=== PATIENT | female | born 1935 | race Caucasian/White ===

== ENCOUNTER 2017-02-04 06:42 | Emergency (ER) | payer OTHER ==
[2017-02-04 06:50] VITALS: PULSE 80; RESP 18
--- NOTE | 2017-02-04 07:22 | EDPHY ---
H & P Time Seen by Provider: 02/04/17 07:21 HPI/ROS: Chief complaint. Nausea, vomiting, diarrhea HPI. Patient is an 81-year-old female presents with vomiting and diarrhea. She was constipated yesterday so she took a stool softener. This morning she had multiple sneezes and then needed to have diarrhea. She has had multiple episodes of loose stools that are brown. Also vomiting this morning. Denies abdominal pain, fever, chest pain, shortness of breath. She has been nauseated for several weeks since being on Keflex in early January for a yellow jacket sting. ROS Constitutional. no fever/chills, no weakness Eyes. no problems with vision ENT. no sore throat, no nasal drainage Cardiovascular. no chest pain Respiratory. no shortness of breath, no cough Abdominal. No abdominal pain but nausea vomiting and diarrhea . no problems urinating MS. no calf pain/swelling, no neck/back pain, no joint pain Skin. no rash Lymph. no swollen glands Neuro. no headache, no dizziness, no difficulty walking or with speech Past Medical/Surgical History: Diabetes, nephrectomy, kidney cancer, dyslipidemia, hypertension Social History: Single, nonsmoker, no alcohol Smoking Status: Never smoked Physical Exam: General Appearance: Alert well-developed female mild distress vital signs are stable Eyes: Pupils equal and round no pallor or injection. ENT, Mouth: Mucous membranes are moist. Respiratory: There are no retractions, lungs are clear to auscultation. Cardiovascular: Regular rate and rhythm. Gastrointestinal: Abdomen is soft and nontender, no masses, bowel sounds normal. Neurological: Awake and alert, sensory and motor exams grossly normal. Skin: Warm and dry, no rashes. Musculoskeletal: Neck is supple nontender. Extremities symmetrical, full range of motion. Psychiatric: Patient is oriented X 3, there is no agitation. Constitutional: Initial Vital Signs Temperature (C) 36.6 C 02/04/17 06:45 Heart Rate 80 02/04/17 06:45 Respiratory Rate 18 02/04/17 06:45 Blood Pressure 151/76 H 02/04/17 06:45 O2 Sat (%) 95 02/04/17 06:45 O2 Delivery Mode Room Air Allergies/Adverse Reactions: cephalexin Allergy (Verified 02/04/17 06:49) epinephrine [Epinephrine] Allergy (Verified 07/30/14 10:12) Horse/Equine Containing Products [Horse/Equine Product Derivatives] Allergy ( Verified 07/30/14 10:12) Hymenoptera Allergenic Extract [From Yellow Jacket Venom Protein] Allergy ( Verified 07/30/14 10:12) Penicillins Allergy (Verified 07/30/14 10:12) Bgfqkeq-Dnq-Xif Reductase Inhibitor Allergy (Verified 02/04/17 06:49) Sulfa (Sulfonamide Antibiotics) Allergy (Verified 07/30/14 10:12) Yellow Jacket Fawad Protein [From Yellow Jacket Venom Protein] Allergy (Verified 07/30/14 10:12) Home Medications: Medication Instructions Recorded Aspirin [Aspirin 81mg (*)] 81 mg PO Q48H 10/03/15 Meclizine HCl [Meclizine HCl 12.5 6.25 mg PO QID PRN 10/03/15 mg (*)] Pravastatin Sodium 20 mg PO HS 10/03/15 Ranitidine HCl [Zantac] 150 mg PO DAILY 10/03/15 Triamterene/Hydrochlorothiazid 1 each PO DAILY 10/03/15 [Triamterene-Hctz 37.5-25 mg Cp] Ondansetron Odt [Zofran Odt] 4 mg PO Q4PRN PRN #4 tab 02/04/17 Zetia 02/04/17 Medical Decision Making Procedures: IV normal saline. Zofran for nausea ED Course/Re-evaluation: Re-evaluation 8:55 a.m.--patient is feeling better. She has no nausea and there has been no vomiting. She has no abdominal pain. No sense of further diarrhea and has not been able to give us a stool sample Patient is drinking water without any abdominal pain, vomiting, diarrhea Patient and I discussed laboratory evaluation, treatment plan including criteria for return importance of follow-up and further evaluation. She expresses understanding and agreement Differential Diagnosis: Nausea and vomiting as well as diarrhea today. Patient had been constipated and took a stool softener and now has diarrhea today. The patient had been a on antibiotics about 3 weeks ago for a wasp sting and has been nauseated since. I have considered C difficile as well but patient is not able to give us a stool sample. - Data Points Laboratory Results: Laboratory Results 02/04/17 07:35 02/04/17 07:35 02/04/17 02/04/17 07:35 07:35 WBC 7.80 10^3/uL 10^3/uL (3.80-9.50) RBC 4.27 10^6/uL 10^6/uL (4.18-5.33) Hgb 13.3 g/dL g/dL (12.6-16.3) Hct 40.2 % % (38.0-47.0) MCV 94.1 fL fL (81.5-99.8) MCH 31.1 pg pg (27.9-34.1) MCHC 33.1 g/dL g/dL (32.4-36.7) RDW 13.1 % % (11.5-15.2) Plt Count 163 10^3/uL 10^3/uL (150-400) MPV 11.0 fL fL (8.7-11.7) Neut % (Auto) 85.7 % H % (39.3-74.2) Lymph % (Auto) 9.0 % L % (15.0-45.0) [place] % (Auto) 4.4 % L % (4.5-13.0) Eos % (Auto) 0.5 % L % (0.6-7.6) Baso % (Auto) 0.1 % L % (0.3-1.7) Nucleat RBC Rel Count 0.0 % % (0.0-0.2) Absolute Neuts (auto) 6.69 10^3/uL H 10^3/uL (1.70-6.50) Absolute Lymphs (auto) 0.70 10^3/uL L 10^3/uL (1.00-3.00) Absolute Monos (auto) 0.34 10^3/uL 10^3/uL (0.30-0.80) Absolute Eos (auto) 0.04 10^3/uL 10^3/uL (0.03-0.40) Absolute Basos (auto) 0.01 10^3/uL L 10^3/uL (0.02-0.10) Absolute Nucleated RBC 0.00 10^3/uL 10^3/uL (0-0.01) Immature Gran % 0.3 % % (0.0-1.1) Immature Gran # 0.02 10^3/uL 10^3/uL (0.00-0.10) Sodium 141 mEq/L mEq/L (134-144) Potassium 4.1 mEq/L mEq/L (3.5-5.2) Chloride 104 mEq/L mEq/L (97-110) Carbon Dioxide 24 mEq/l mEq/l (22-31) Anion Gap 13 mEq/L mEq/L (8-16) BUN 23 mg/dL mg/dL (7-23) Creatinine 1.0 mg/dL mg/dL (0.6-1.0) Estimated GFR 53 Glucose 147 mg/dL H mg/dL (70-100) Calcium 9.3 mg/dL mg/dL (8.5-10.4) Medications Given: Discontinued Medications Sodium Chloride (Ns) 1,000 mls @ 0 mls/hr IV EDNOW ONE; Wide Open PRN Reason: Protocol Stop: 02/04/17 07:33 Last Admin: 02/04/17 07:38 Dose: 1,000 mls Ondansetron HCl (Zofran) 4 mg IVP EDNOW ONE Stop: 02/04/17 07:33 Last Admin: 02/04/17 07:45 Dose: 4 mg Departure - Departure Disposition: Home, Routine, Self-Care Clinical Impression: Diarrhea Qualifiers: Diarrhea type: unspecified type Qualified Code(s): R19.7 - Diarrhea, unspecified Condition: Good Instructions: Acute Diarrhea (ED), Acute Nausea and Vomiting (ED), Loperamide ( By mouth) Additional Instructions: Frequent, small sips fluids well nauseated. Zofran if needed for nausea. May use Imodium (Loperamide) from the grocery store if necessary for diarrhea. Return for worsening abdominal pain, vomiting, diarrhea. Recheck in 1-2 days if not improved Referrals: Gaby Leonardo MD [Primary Care Provider] - 2-3 days, if not improved Prescriptions: Ondansetron Odt [Zofran Odt] 4 mg PO Q4PRN PRN #4 tab PRN Reason: Nausea/Vomiting, Use 1st
[2017-02-04] MEDS ORDERED: NS 1,000 ML IV ONE (07:32)
[2017-02-04] MEDS ORDERED: ONDANSETRON 4 MG/2 ML VIAL IVP ONE (07:32)
[2017-02-04 07:47] LABS: % IMMATURE GRANULYOCYTES 0.3 % (0.0-1.1); ABSOLUTE IMMATURE GRANULOCYTES 0.02 10^3/uL (0.00-0.10); ADD DIFF? NO; ADD MORPH? NO; ADD SCAN? NO; ATYPICAL LYMPHOCYTE FLAG 10 (0-99); FRAGMENT RBC FLAG 0 (0-99); HEMATOCRIT 40.2 % (38.0-47.0); HEMOGLOBIN 13.3 g/dL (12.6-16.3); LEFT SHIFT FLG 30 (0-99); LIPEMIA HEMOLYSIS FLAG 80 (0-99); MEAN CELL HEMOGLOBIN 31.1 pg (27.9-34.1); MEAN CELL HEMOGLOBIN CONCENTR. 33.1 g/dL (32.4-36.7); MEAN CELL VOLUME 94.1 fL (81.5-99.8); PLATELET CLUMPS FLAG 0 (0-99); PLATELET COUNT 163 10^3/uL (150-400); RED BLOOD CELL COUNT 4.27 10^6/uL (4.18-5.33); RED CELL DISTRIBUTION WIDTH 13.1 % (11.5-15.2)
[2017-02-04 08:12] LABS: ANION GAP 13 mEq/L (8-16); CALCIUM 9.3 mg/dL (8.5-10.4); CARBON DIOXIDE 24 mEq/l (22-31); CHLORIDE 104 mEq/L (97-110); GLOMERULAR FILTRATION RATE 53; GLUCOSE 147 mg/dL (70-100); POTASSIUM 4.1 mEq/L (3.5-5.2); SODIUM 141 mEq/L (134-144)
[2017-02-04 09:26] VITALS: BP 114/64; TEMP 98.4; O2SAT 94
== END 2017-02-04 09:24 | disposition home or self-care (01) ==
DX: R19.7 Diarrhea, unspecified (principal); I10 Essential (primary) hypertension; E11.9 Type 2 diabetes mellitus without complications; E86.9 Volume depletion, unspecified; Z85.528 Personal history of other malignant neoplasm of kidney; Z79.82 Long term (current) use of aspirin
CPT/HCPCS: 96360; 99284; J2405

== ENCOUNTER 2017-05-04 15:45 | Emergency (ER) | payer OTHER ==
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
[2017-05-04 16:00] VITALS: TEMP 98.1
--- NOTE | 2017-05-04 16:04 | CPEKG ---
Heart Rate: 68 RR Interval: 882 P-R Interval: 164 QRSD Interval: 94 QT Interval: 412 QTC Interval: 439 P Commerce: 74 QRS Commerce: 21 T Wave Commerce: 58 EKG Severity - NORMAL ECG - EKG Impression: SINUS RHYTHM Electronically Signed By: Isa Stanton 04-May-2017 21:13:14
[2017-05-04 18:04] VITALS: BP 176/112; PULSE 67; RESP 20; O2SAT 95
== END 2017-05-04 18:52 | disposition home or self-care (01) ==
LOC: EDUNIT#
DX: S16.1XXA Strain of muscle, fascia and tendon at neck level, initial encounter (principal); S20.219A Contusion of unspecified front wall of thorax, initial encounter; E11.9 Type 2 diabetes mellitus without complications; I10 Essential (primary) hypertension; Z79.82 Long term (current) use of aspirin; Z85.528 Personal history of other malignant neoplasm of kidney; V43.52XA Car driver injured in collision with other type car in traffic accident, initial encounter; Y92.410 Unspecified street and highway as the place of occurrence of the external cause; Y99.8 Other external cause status; Y93.89 Activity, other specified
CPT/HCPCS: L0172

== ENCOUNTER 2017-05-18 17:13 | Emergency (ER) | payer OTHER ==
[2017-05-18 17:28] VITALS: BP 183/86; PULSE 71; RESP 20; TEMP 98.6; O2SAT 94
--- NOTE | 2017-05-18 17:37 | EDPHY ---
H & P Stated Complaint: left leg wound starting a couple days ago, concerned d/t diabetes Time Seen by Provider: 05/18/17 17:28 HPI/ROS: CHIEF COMPLAINT: Left leg abrasion HISTORY OF PRESENT ILLNESS: Patient is an 81-year-old female with history of type 2 diabetes controlled by diet alone. She states that she scratched her leg a couple of days ago in became concerned today because she felt like she could feel her heartbeat in her calf. No erythema. No drainage. No fevers. She has never had problems with diabetic leg infections in the past. No edema. No neuropathy. REVIEW OF SYSTEMS: Constitutional: denies: chills, fever, recent illness, recent injury EENTM: denies: blurred vision, double vision, nose congestion Respiratory: denies: cough, shortness of breath Cardiac: denies: chest pain, irregular heart rate, lightheadedness, palpitations Gastrointestinal/Abdominal: denies: abdominal pain, diarrhea, nausea, vomiting, blood streaked stools Genitourinary: denies: dysuria, frequency, hematuria, pain Musculoskeletal: denies: joint pain, muscle pain Skin: See HPI Neurological: denies: headache, numbness, paresthesia, tingling, dizziness, weakness Hematologic/Lymphatic: denies: blood clots, easy bleeding, easy bruising Immunologic/allergic: denies: HIV/AIDS, transplant EXAM: GENERAL: Well-appearing, well-nourished and in no acute distress. HEAD: Atraumatic, normocephalic. EYES: Pupils equal round and reactive to light, extraocular movements intact, sclera anicteric, conjunctiva are normal. ENT: TMs normal, nares patent, oropharynx clear without exudates. Moist mucous membranes. NECK: Normal range of motion, supple without lymphadenopathy or JVD. LUNGS: Breath sounds clear to auscultation bilaterally and equal. No wheezes rales or rhonchi. HEART: Regular rate and rhythm without murmurs, rubs or gallops. ABDOMEN: Soft, nontender, normoactive bowel sounds. No guarding, no rebound. No masses appreciated. BACK: No CVA tenderness, no spinal tenderness, step-offs or deformities EXTREMITIES: Normal range of motion, no pitting or edema. No clubbing or cyanosis. NEUROLOGICAL: Cranial nerves II through XII grossly intact. Normal speech, normal gait. 5 strength, normal movement in all extremities, normal sensation PSYCH: Normal mood, normal affect. SKIN: Patient has small abrasion to her left anterior ibrahim. A single small blister. No surrounding erythema. No warmth. No edema. Source: Patient Exam Limitations: No limitations - Personal History Current Tetanus/Diphtheria Vaccine: Yes Current Tetanus Diphtheria and Acellular Pertussis (TDAP): Yes Tetanus Vaccine Date: 2009 - Medical/Surgical History Hx Asthma: No Hx Chronic Respiratory Disease: No Hx Diabetes: Yes Hx Cardiac Disease: No Hx Renal Disease: Yes Hx Cirrhosis: No Hx Alcoholism: No Hx HIV/AIDS: No Hx Splenectomy or Spleen Trauma: No Other PMH: diet controlled diabetes, L nephrectomy, hx kidney ca, high cholesterol, HTN, - Family History Significant Family History: No pertinent family hx - Social History Smoking Status: Never smoked Constitutional: Initial Vital Signs Temperature (C) 37 C 05/18/17 17:25 Heart Rate 71 05/18/17 17:25 Respiratory Rate 20 05/18/17 17:25 Blood Pressure 183/86 H 05/18/17 17:25 O2 Sat (%) 94 05/18/17 17:25 O2 Delivery Mode Room Air Allergies/Adverse Reactions: cephalexin Allergy (Verified 05/18/17 17:24) epinephrine [Epinephrine] Allergy (Verified 05/18/17 17:24) Horse/Equine Containing Products [Horse/Equine Product Derivatives] Allergy ( Verified 05/18/17 17:24) Hymenoptera Allergenic Extract [From Yellow Jacket Venom Protein] Allergy ( Verified 05/18/17 17:24) Penicillins Allergy (Verified 05/18/17 17:24) Tpfynvl-Too-Jig Reductase Inhibitor Allergy (Verified 05/18/17 17:24) Sulfa (Sulfonamide Antibiotics) Allergy (Verified 05/18/17 17:24) Yellow [place]et Fawad Protein [From [place] Venom Protein] Allergy (Verified 05/18/17 17:24) Home Medications: Medication Instructions Recorded Aspirin [Aspirin 81mg (*)] 81 mg PO Q48H 10/03/15 Zetia 02/04/17 Medical Decision Making ED Course/Re-evaluation: We discussed treatment options. This will likely improve without treatment but we did discuss the possibility of infection. Initially we planned to prescribe her antibiotics that she may begin taking in 48 hours if her symptoms are not improving or if there are signs of infection. She then told me however that she is allergic to cephalosporins, penicillins and sulfa. This significantly limits the options. After further discussion we agreed to wait and see if her symptoms worsen and if they do she will follow up either here or with her primary and may require IV antibiotic options. Differential Diagnosis: Partial list of the Differential diagnosis considered include but were not limited to; abrasion, diabetic wound infection and although unlikely based on the history and physical exam, I also considered cellulitis, DVT, sepsis. I discussed these differential diagnoses and the plan with the patient as well as the usual and expected course. The patient understands that the diagnosis is provisional and that in medicine we are not always correct and that further workup is often warranted. Usual and customary warnings were given. All of the patient's questions were answered. The patient was instructed to return to the emergency department should the symptoms at all worsen or return, otherwise to followup with the physician as we discussed. Departure - Departure Disposition: Home, Routine, Self-Care Clinical Impression: Abrasion, left lower leg, initial encounter Condition: Fair Instructions: Abrasion (ED) Additional Instructions: Watch for signs of infection as we discussed. If you develop a fever, warmth or redness return to the hospital or follow up with her primary doctor. Referrals: Gaby Leonardo MD [Primary Care Provider] - As per Instructions
== END 2017-05-18 17:41 | disposition home or self-care (01) ==
LOC: CED 17:13
DX: S80.812A Abrasion, left lower leg, initial encounter (principal); E11.9 Type 2 diabetes mellitus without complications; I10 Essential (primary) hypertension; X58.XXXA Exposure to other specified factors, initial encounter